=== PATIENT | female | born 1995 | race Caucasian/White ===

== ENCOUNTER 2017-12-24 12:30 | Observation (INO) | payer MEDICAID ==
[~2017-12-24] VITALS: Ht 167.6 cm; Wt 88.9 kg
[2017-12-24] MEDS ORDERED: LACTATED RINGER'S 1,000 ML IV ONE (13:42)
[2017-12-24] MEDS ORDERED: PREN-96 PO (13:46)
[2017-12-24] MEDS ORDERED: BETAMETHASONE ACET (6MG/ML) 5ML VIAL ONE (13:51)
[2017-12-24] MEDS: TERBUTALINE SULFATE 1 MG/ML 1ML VIAL SC SCH ×3 (13:55→15:00)
[2017-12-24] MEDS ORDERED: NIFEdipine 10 MG CAP PO ONE (14:45)
[2017-12-24] MEDS ORDERED: BETAMETHASONE ACET (6MG/ML) 5ML VIAL IM SCH (22:00)
== END 2017-12-24 17:20 | disposition home or self-care (01) | DRG 566 ==
LOC: LDRP 12:30
PROVIDERS: ADMIT Obstetrics & Gynecology; ATTEND Obstetrics & Gynecology
DX: O26.893 Other specified pregnancy related conditions, third trimester (principal); Z3A.28 28 weeks gestation of pregnancy
CPT/HCPCS: 59025; 81002; 96372; G0378; J0702; J3105; 96361

== ENCOUNTER 2017-12-25 13:50 | Observation (INO) | payer MEDICAID ==
[~2017-12-25 13:50] MED LIST: PREN-96 PO
[2017-12-25] MEDS ORDERED: BETAMETHASONE ACET (6MG/ML) 5ML VIAL IM ONE (14:45)
== END 2017-12-25 15:40 | disposition home or self-care (01) | DRG 566 ==
LOC: LDRP 13:50
PROVIDERS: ADMIT Obstetrics & Gynecology; ATTEND Obstetrics & Gynecology
DX: O30.003 Twin pregnancy, unspecified number of placenta and unspecified number of amniotic sacs, third trimester (principal); O60.03 Preterm labor without delivery, third trimester; Z3A.28 28 weeks gestation of pregnancy
CPT/HCPCS: 59025; 81002; 96372; G0378

== ENCOUNTER 2018-02-11 20:22 | Observation (INO) | payer MEDICAID | END 2018-02-11 22:46 | disposition home or self-care (01) | DRG 566 | LOC: LDRP 20:22 | PROVIDERS: ADMIT Specialist; ATTEND Specialist | DX: O30.003 Twin pregnancy, unspecified number of placenta and unspecified number of amniotic sacs, third trimester (principal); Z3A.35 35 weeks gestation of pregnancy | CPT/HCPCS: 59025; 76818; 81002; G0378 ==

== ENCOUNTER 2018-02-15 11:45 | Observation (INO) | payer MEDICAID ==
[2018-02-15 13:41] LABS: Urine Bacteria FEW /hpf (None Seen); Urine Blood Negative /uL (Negative); Urine Specific Gravity 1.003 (1.001-1.035); Urine WBC 12 /hpf (0 - 5)
[2018-02-15 14:04] LABS: Alcohol, Urine < 3.0 mg/dL (0-5); Amphetamine Screen, Urine NEGATIVE (NEGATIVE); Barbiturate Scree,Urine NEGATIVE (NEGATIVE); Benzodiazephine Screen, Urine NEGATIVE (NEGATIVE); Cannabinoid Screen, Urine NEGATIVE (NEGATIVE); Cocaine Screen, Urine NEGATIVE (NEGATIVE); Opiate Scree,Urine NEGATIVE (NEGATIVE); Phencyclidine Screen, Urine NEGATIVE (NEGATIVE)
== END 2018-02-15 13:15 | disposition home or self-care (01) | DRG 566 ==
LOC: LDRP 11:45
PROVIDERS: ADMIT Specialist; ATTEND Specialist
DX: O30.003 Twin pregnancy, unspecified number of placenta and unspecified number of amniotic sacs, third trimester (principal); Z3A.35 35 weeks gestation of pregnancy
CPT/HCPCS: 59025; 76818; 80307; 81001; 81002; G0378

== ENCOUNTER 2018-03-03 08:00 | Inpatient (IN) | payer MEDICAID ==
[~2018-03-03] VITALS: Ht 162.6 cm; Wt 99.3 kg
[2018-03-03] MEDS ORDERED: LACT. RINGERS/OXYTOCIN 20UNITS 1,000 ML IV SCH (08:30)
[2018-03-03] MEDS ORDERED: WITCH HAZEL-GLYCERIN PAD TOP PRN (08:30)
[2018-03-03] MEDS ORDERED: DERMOPLAST 60ML BOTTLE TOP PRN (08:30)
[2018-03-03] MEDS ORDERED: PHISODERM TOP SOLN 240ML BTL TOP PRN (08:30)
[2018-03-03] MEDS ORDERED: LACTATED RINGER'S 1,000 ML IV SCH (08:30)
[2018-03-03] MEDS ORDERED: LIDOCAINE 1% (LOCAL ANESTH.) PF 5ml SDV IJ ONE (08:30)
[2018-03-03 09:29] LABS: Basophils # (auto) 0 uL; Basophils % (auto) 0.3 % (0.0-2.0); Eosinophils # (auto) 0.2 uL; Eosinophils % (auto) 2.8 % (0.0-7.0); Hematocrit 35.1 % (36.0-46.0); Hemoglobin 11.9 g/dL (12.2-16.2); Lymphocytes # (auto) 1.2 uL; Lymphocytes % (auto) 17.5 % (10.0-50.0); Mean Corpuscular Hemoglobin 32.9 pg (28.0-32.0); Mean Corpuscular Hgb Conc. 33.9 g/dL (32.0-36.0); Mean Corpuscular Volume 96.9 fL (80.0-100.0); Monocytes # (auto) 0.5 uL; Monocytes % (auto) 7.5 % (0.0-12.0); Neutrophils # (auto) 4.9 uL; Neutrophils % (auto) 71.9 % (37.0-80.0); Nucleated Red Blood Cells % 0.3 %; Platelet Count (auto) 171 10^3/uL (140-450); Red Blood Cells 3.62 10^6/uL (4.0-5.20); Red Cell Distribution Width 13.4 % (11.8-14.3); White Blood Cell 6.8 10^3/uL (4.4-10.8)
[2018-03-03 09:34] LABS: Urine Bacteria NONE SEEN /hpf (None Seen); Urine Blood Negative /uL (Negative); Urine Budding Yeast FEW /hpf (None Seen); Urine Specific Gravity 1.006 (1.001-1.035); Urine WBC 21 /hpf (0 - 5)
[2018-03-03 09:44] LABS: INR 0.88 (0.9-1.15); Partial Thromboplastin Time 29.1 sec (23.78-33.04); Prothrombin Time 9.5 sec (9.27-12.13)
[2018-03-03 09:49] LABS: Albumin 2.7 g/dL (3.4-5.0); BUN/Creatinine Ratio 4.3; Calcium 8.4 mg/dL (8.5-10.1); Potassium 3.3 mmol/L (3.5-5.1)
[2018-03-03 09:52] LABS: Bilirubin, Total 0.5 mg/dL (0.2-1.0); Total Protein 6.6 g/dL (6.4-8.2)
[2018-03-03] MEDS ORDERED: NALOXONE HCL 0.4 MG/ML VIAL IV ONE ×2 (16:30→23:00)
[2018-03-03] MEDS ORDERED: LIDOCAINE HCL 2 %PF INJ 10ML AMP IJ ONE (16:30)
[2018-03-03] MEDS ORDERED: ePHEDrine SULFATE 50 MG/ML AMP IV ONE ×2 (16:30→23:00)
[2018-03-03] MEDS ORDERED: fentaNYL W ROPIVACAINE 150 ML EPI SCH ×2 (16:30→23:00)
[2018-03-03] MEDS ORDERED: fentaNYL CITRATE 100 MCG/2 ML VL IV ONE (16:30)
[2018-03-03] MEDS ORDERED: POTASSIUM CHL 20 Meq TABLET PO ONE (17:15)
[2018-03-03 20:29] LABS: Alcohol, Urine < 3.0 mg/dL (0-5); Amphetamine Screen, Urine NEGATIVE (NEGATIVE); Barbiturate Scree,Urine NEGATIVE (NEGATIVE); Benzodiazephine Screen, Urine NEGATIVE (NEGATIVE); Cannabinoid Screen, Urine NEGATIVE (NEGATIVE); Cocaine Screen, Urine NEGATIVE (NEGATIVE); Opiate Scree,Urine NEGATIVE (NEGATIVE); Phencyclidine Screen, Urine NEGATIVE (NEGATIVE)
[2018-03-03] MEDS ORDERED: ACETAMINOPHEN 325 MG TAB PO ONE (22:45)
[2018-03-03] MEDS ORDERED: SODIUM CHLORIDE 0.9% 500 ML IV PRN (22:51)
[2018-03-03] MEDS ORDERED: MAGNESIUM SULFATE 100 ML IV ONE ×3 (22:56→23:30)
[2018-03-03] MEDS ORDERED: MAGNESIUM SULFATE 40MG/ML 1,000 ML IV SCH (23:30)
[2018-03-04] MEDS ORDERED: ACETAMINOPHEN 325 MG TAB PO PRN (02:15)
[2018-03-04] MEDS ORDERED: METHYLERGONOVINE MALEATE 0.2 MG/ML AMP IM PRN (03:45)
[2018-03-04] MEDS ORDERED: LIDOCAINE 2%HCL (LOCAL ANESTH.) INJ 20ML MDV ID ONE (04:00)
[2018-03-04] MEDS: NALBUPHINE HCL 10 MG/1ml INJECTION IV PRN ×3 (04:06→15:05)
[2018-03-04] MEDS ORDERED: TERBUTALINE SULFATE 1 MG/ML 1ML VIAL SC ONE (05:00)
[2018-03-04 06:06] LABS: RPR Non Reactive (Non Reactive)
[2018-03-04] MEDS: hydrALAZINE HCL 20 MG/ML VL IV PRN ×3 (06:55→15:26)
[2018-03-04] MEDS ORDERED: D5W/LACTATED RINGERS 1,000 ML IV SCH (13:45)
[2018-03-04] MEDS ORDERED: SUCCINYLCHOLINE CHLORIDE 20 MG/ML 10ML VIAL IV ONE (16:00)
[2018-03-04] MEDS ORDERED: METOCLOPRAMIDE HCL 5MG/ml INJ 2ml VIAL ONE (16:02)
[2018-03-04] MEDS ORDERED: PROPOFOL 10 MG/ML 20 ML IV ONE (16:02)
[2018-03-04] MEDS ORDERED: ROCURONIUM 10MG/ML 10ML VIAL IV ONE (16:12)
[2018-03-04] MEDS ORDERED: ceFAZolin 1GM VL ONE (16:19)
[2018-03-04] MEDS ORDERED: fentaNYL CITRATE 100 MCG/2 ML VL ONE (16:20)
[2018-03-04] MEDS ORDERED: PHENYLEPHRINE HCL 10 MG/ML VL ONE (16:25)
[2018-03-04] MEDS ORDERED: ceFAZolin 1GM/50ML 50 ML IV SCH (16:45)
[2018-03-04] MEDS ORDERED: ONDANSETRON HCL 4 MG/2 ML VIAL IV PRN (16:45)
[2018-03-04] MEDS ORDERED: KETOROLAC TROMETH 30 MG/ML 1ML VIAL IV PRN (16:45)
[2018-03-04] MEDS ORDERED: GLYCOPYRROLATE 0.2 MG/ML 1ML VIAL ONE ×2 (16:50)
[2018-03-04] MEDS ORDERED: NEOSTIGMINE 1 MG/ML INJ (10mg/10ML VIAL) ONE (16:50)
--- NOTE | 2018-03-04 16:55 | NUR ---
Epidural catheter removed per Dr Aragon's order. Tip intact
[2018-03-04] MEDS ORDERED: HYDROmorphone HCL 2 MG/ML VL IV PRN (17:15)
[2018-03-04] MEDS ORDERED: NALOXONE HCL 0.4 MG/ML VIAL IV PRN (17:15)
[2018-03-04] MEDS ORDERED: ONDANSETRON HCL 4 MG/2 ML VIAL IV ONE (17:15)
[2018-03-04] MEDS ORDERED: hydrALAZINE HCL 20 MG/ML VL IV PRN ×2 (17:15→19:30)
[2018-03-04] MEDS ORDERED: OXYTOCIN 20 UNT in SODIUM CHLORIDE 0.9% 1,000 ML IV SCH (17:30)
[2018-03-04] MEDS: HYDROmorphone HCL 2 MG/ML VL IV PRN ×2 (17:42→17:52)
[2018-03-04] MEDS ORDERED: OXYTOCIN IV SCH (17:45)
[2018-03-04] MEDS ORDERED: MAGNESIUM SULF IV SCH (17:45)
[2018-03-04] MEDS ORDERED: SODIUM CHLORIDE 0.9% IV SCH (17:45)
--- NOTE | 2018-03-04 18:15 | NUR ---
Post Op for LDRP: Received patient from PACU via bed to room . Patient A/A/Ox4, abdominal binder and bilateral SCD's are in place and working, IV fluids placed on pump and infusing per order, incisional site dressing clean/dry/intact and Le Catheter to gravity draining clear yellow urine. Incentive Spirometer at bedside and instruction on proper use with return demonstration done by patient. fundus firm and at U ,scant bleeding noted.
[2018-03-04] MEDS ORDERED: MAGNESIUM SULFATE 40MG/ML 1,000 ML IV ONE (18:25)
[2018-03-04] MEDS ORDERED: MAGNESIUM SULFATE 40MG/ML 1,000 ML IV SCH ×2 (18:41→18:45)
[2018-03-04] MEDS: LACTATED RINGER'S 1,000 ML IV SCH (18:47)
--- NOTE | 2018-03-04 18:47 | NUR ---
MAGNESIUM SULFATE HUNG AT 50ML/HR 2 G/HR, WITNESSED BY KERLINE MIGUEL
--- NOTE | 2018-03-04 19:20 | NUR ---
Dr Krishna called with blood pressures to obtain new orders, all orders reviewed and new orders received.
[2018-03-04] MEDS: LABETALOL HCL 200 MG TAB PO SCH (19:43)
[2018-03-04] MEDS: ACETAMINOPHEN IV 1000 MG/100ML (10MG/ML) IV SCH (20:04)
--- NOTE | 2018-03-04 21:00 | NUR ---
Bottle-feeding Education: Patient encouraged to breastfeed. Benefits of and the risk of providing formula to was discussed. Patient verbalized understanding of the benefits and is aware of risk and insists on bottle-feeding. Formula provided and instruction on formula preparation from the [facility] booklet reviewed with patient.
[2018-03-04] MEDS: MORPHINE SULFATE 4 MG/ML SYR/VIAL IV PRN (22:02)
[2018-03-04 22:06] LABS: Basophils # (auto) 0 uL; Eosinophils # (auto) 0 uL; Hemoglobin 10.4 g/dL (12.2-16.2); Lymphocytes # (auto) 0.8 uL; Lymphocytes % (auto) 3.8 % (10.0-50.0); Mean Corpuscular Hemoglobin 32.6 pg (28.0-32.0); Mean Corpuscular Hgb Conc. 33.4 g/dL (32.0-36.0); Mean Corpuscular Volume 97.6 fL (80.0-100.0); Monocytes # (auto) 1.5 uL; Monocytes % (auto) 7.3 % (0.0-12.0); Neutrophils # (auto) 18.1 uL; Neutrophils % (auto) 88.9 % (37.0-80.0); Nucleated Red Blood Cells % 0.1 %; Platelet Count (auto) 194 10^3/uL (140-450); Red Blood Cells 3.18 10^6/uL (4.0-5.20); Red Cell Distribution Width 13.6 % (11.8-14.3); White Blood Cell 20.4 10^3/uL (4.4-10.8)
[2018-03-05] MEDS: ceFAZolin 1GM/50ML 50 ML IV SCH ×3 (00:14→14:35)
[2018-03-05] MEDS: KETOROLAC TROMETH 30 MG/ML 1ML VIAL IV SCH ×3 (00:15→12:04)
[2018-03-05] MEDS: MORPHINE SULFATE 4 MG/ML SYR/VIAL IV PRN ×3 (03:08→13:03)
[2018-03-05] MEDS: LACTATED RINGER'S 1,000 ML IV SCH (05:42)
[2018-03-05 06:51] LABS: Basophils # (auto) 0 uL; Basophils % (auto) 0.1 % (0.0-2.0); Eosinophils # (auto) 0 uL; Eosinophils % (auto) 0.3 % (0.0-7.0); Hematocrit 26.4 % (36.0-46.0); Hemoglobin 8.9 g/dL (12.2-16.2); Lymphocytes # (auto) 1.1 uL; Mean Corpuscular Hemoglobin 32.7 pg (28.0-32.0); Mean Corpuscular Hgb Conc. 33.5 g/dL (32.0-36.0); Mean Corpuscular Volume 97.5 fL (80.0-100.0); Monocytes # (auto) 1.2 uL; Monocytes % (auto) 7.2 % (0.0-12.0); Neutrophils # (auto) 13.7 uL; Neutrophils % (auto) 85.4 % (37.0-80.0); Nucleated Red Blood Cells % 0.1 %; Platelet Count (auto) 175 10^3/uL (140-450); Red Blood Cells 2.71 10^6/uL (4.0-5.20); Red Cell Distribution Width 13.3 % (11.8-14.3)
[2018-03-05 06:59] LABS: Albumin 1.9 g/dL (3.4-5.0); BUN/Creatinine Ratio 4.1; Calcium 7.2 mg/dL (8.5-10.1); Potassium 3.3 mmol/L (3.5-5.1)
[2018-03-05 07:00] VITALS: BP 121/71
[2018-03-05 07:02] LABS: Bilirubin, Total 0.5 mg/dL (0.2-1.0); Total Protein 4.9 g/dL (6.4-8.2)
[2018-03-05] MEDS: ACETAMINOPHEN IV 1000 MG/100ML (10MG/ML) IV SCH (08:00)
[2018-03-05] MEDS: LABETALOL HCL 200 MG TAB PO SCH ×2 (08:00→20:20)
--- NOTE | 2018-03-05 09:15 | NUR ---
radiology dept. called up and check if they can come and get the patient to do her mri of the neck so the telegraphic typewriter installer of this notes explained to the patient that somebody will come to pick her up for ct scan but the patient requested it to be done later this afternoon because she still does not feel like going anywhere right now and the is not in the room and she wants her to be in the room with the twins.
[2018-03-05 11:00] VITALS: BP 126/67
--- NOTE | 2018-03-05 13:40 | NUR ---
radiology department called up and was informed that the patient wants to do her ct scan of the neck at 1600 today.
[2018-03-05] MEDS: SODIUM CHLOR 0.9% PF (SALINE LOCK) 10ML VIAL/SYR IV SCH ×2 (14:00→22:00)
[2018-03-05] MEDS ORDERED: POTASSIUM CHL 20 Meq TABLET PO ONE (14:15)
--- NOTE | 2018-03-05 14:30 | NUR ---
dr. funk came in received order soft diet and remove padilla catheter before going to radiology for ct scan of the neck and then encouraged to ambulate.
--- NOTE | 2018-03-05 14:45 | NUR ---
padilla bag emptied and obtained 1800 ml of clear yellow colored urine.
[2018-03-05 15:40] VITALS: BP 139/79
[2018-03-05] MEDS ORDERED: HYDROcodone-ACET 5/325MG TAB PO PRN (16:00)
[2018-03-05] MEDS ORDERED: BISACODYL 10 MG RECT SUPP PR PRN (16:00)
--- NOTE | 2018-03-05 16:00 | NUR ---
solar thermal technician came in to take the patient to ct scan but patient refused to do it now and wanted to do it again at 1999 ruthy explained to the patient that only emergency cases will be done at night and it needs to be done by 1700 today but still patient refused doing it at this time.report given to karely ramirez rn patient in stable condition.
--- NOTE | 2018-03-05 16:10 | NUR ---
DR. DAMON AT PT BEDSIDE TALKING WITH PT. DR. DAMON DISCUSSING WITH PT THE IMPORTANCE OF THE CT SCAN. PT STATES "IM TO TIRED NOW AND WANT TO DO IT TOMORROW." PT NOTIFIED DR. DAMON THAT HER NECK AND BACK DOESN'T HURT ANYMORE. DR. DAMON TOLD PT THAT THE CT SCAN CAN BE DONE TOMORROW MORNING. PT VERBALIZES UNDERSTANDING. WILL NOTIFY PAID INTERN RN. WILL CONTINUE TO MONITOR.
[2018-03-05] MEDS: HYDROcodone-ACET 5/325MG TAB PO PRN ×2 (16:44→20:23)
--- NOTE | 2018-03-05 17:47 | NUR ---
this RN at bedside to remove padilla catheter, pt states " not right now, I'll be ready in about 15 min"
[2018-03-05] MEDS: SIMETHICONE 80 MG CHEWABLE TABLET PO SCH ×2 (18:10→22:02)
--- NOTE | 2018-03-05 18:30 | NUR ---
PT REPORT GIVEN TO Hiren DUARTE RN ON STABLE PATIENT. NO S/S OF DISTRESS OR SOB NOTED. Hiren DUARTE MADE AWARE THAT PTS REQUESTED HER CT SCAN FOR TOMORROW MORNING, AND PT WANTING TO HOLD OFF ON WILLETT REMOVAL AND GETTING OUT OF BED AT THIS TIME, RELINQUISHED CARE.
[2018-03-05 19:15] VITALS: BP 142/90
--- NOTE | 2018-03-05 19:15 | NUR ---
Fundus firm just below the umb. lochia is small no clots noted. padilla catheter removed and intact eric care given, and instructions on eric care given. seq stockings removed. Educated on the importance of being able to urinate within a six hour time frame. Pt verbalizes understanding. will continue to monitor
--- NOTE | 2018-03-05 21:30 | NUR ---
Asked the patient if she was rady to ret up and out of bed, patient states shes is not ready to get up and out of bed. Will continue to monitor
[2018-03-05] MEDS: DOCUSATE SOD 100 MG CAP PO SCH (22:00)
[2018-03-05 23:15] VITALS: BP 141/82
--- NOTE | 2018-03-06 01:00 | NUR ---
Preparing pt for ambulation. fundus remains firm just below the umb. lochia is small one small clot noted. Pt sitting on edge of bed. pt had difficulty sitting up, no c/o dizziness. With assistance from nurses and her sign. other pt able to stand up and ambulate to bathroom. Pt able to urinate without difficulty. Gladys care instructions given and demonstrated. pt verbalizes understanding. Pt back to bed with assistance from staff and significant other. Call villalobos within reach instructed to notify staff if exp any problems or has any difficulty.
[2018-03-06] MEDS: HYDROcodone-ACET 5/325MG TAB PO PRN ×5 (01:30→20:11)
[2018-03-06 03:05] VITALS: BP 146/80
--- NOTE | 2018-03-06 04:20 | NUR ---
Pt states she needs "help getting up to use the bathroom" with assistance from staff and significant other pt up and ambulating to bathroom output 450 ml's of blood tinged urine noted. Pt back to bed with assistance. Explained to pt the importance of ambulating, asked if she wanted to walk in the [address] pt refused will continue to monitor
[2018-03-06] MEDS: IBUPROFEN 800 MG TAB PO PRN ×2 (04:30→15:22)
[2018-03-06] MEDS: SODIUM CHLOR 0.9% PF (SALINE LOCK) 10ML VIAL/SYR IV SCH ×2 (06:00→14:00)
[2018-03-06] MEDS: DOCUSATE CALCIUM 240 MG CAP PO SCH (06:00)
[2018-03-06] MEDS: SIMETHICONE 80 MG CHEWABLE TABLET PO SCH ×4 (06:18→21:50)
[2018-03-06 07:10] VITALS: BP 128/66
[2018-03-06] MEDS: LABETALOL HCL 200 MG TAB PO SCH ×2 (07:17→20:46)
[2018-03-06] MEDS: DOCUSATE SOD 100 MG CAP PO SCH ×2 (10:00→21:50)
[2018-03-06 11:00] VITALS: BP 150/78
[2018-03-06 15:30] VITALS: BP 140/81
[2018-03-06 19:00] VITALS: BP 143/89
--- NOTE | 2018-03-06 19:00 | NUR ---
Received female pt awake and alert states she "has lots of pain" asked if she is exp incisional pain or cramping pt pointed to abd and states "incision pain" complained that "the other nurse said I could have the other Pritchett when I needed it. pt went on to explain that she had told the previous nurse that she wanted to eat something before she took her pain medication and then was only given one Pritchett" and pt is now asking for her second Pritchett. Explained to pt that the order written by her physician was that she may have one tablet or two tablets for pain every four hours and that because she only took one tablet she needed to wait the four hour time frame. Present during conversation with pt was Amarilis charge master specialist nurse and she again explained to pt our protocol and orders regarding administration of pain medication. Other interventions offered to help with pain relief, pt not receptive and remains very disinterested Pt does not seem satisfied with the explanation given to her regarding protocol and orders. Did reassure her that she was able to receive pain medication after four hours from the previous dose. Which would in a little over an hour, Pt nodded and said Ok. Physical assessment completed, encouraged pt to ambulate, states she's walking around her room. No distress noted will continue to monitor
--- NOTE | 2018-03-06 21:50 | NUR ---
Entered room to administer medication while putting medication cups on bedside table a brown medication bottle was noticed on bedside table that was quickly snatched by grandmother. Will continue to monitor. 2300: V/S obtained and a small medication syringe was noted to be rolled up in cloth diaper on the father's bed. female twin B was crying and rooting showing feeding cues I asked mother if the had been fed and she stated she had just finished. I looked at the bottle of formula and noted that only 10 ml's had been fed explained to mom that the baby could feed more and she stated that the baby wasn't hungry and that the baby had a stomach ache. While grandmother was holding I palpated the abd and found it to be soft with active b/s again encouraged mother to offer more formula and she she said no. Will continue to monitor 2330 Spoke with Angel vpk teacher along with Amarilis RN, regarding findings in patient's room she advised to speak to the patient and explain our concerns. 0115 Pt is asking for pain medication states her pain is 8/10 on pain scale. Amarilis and this RN spoke with parents at bedside explained our concerns regarding the brown medication bottle and the medication syringe noted in her room. Patient was very defensive and stated "that's medication for my baby girl she has lots of gas" She stated she had not given her any of the medication and that she's the mother and can trimmer sawyer her what she wants We validated her feelings and explained our concerns. The brown medication bottle was labeled "Mylicon" drops.
[2018-03-06 23:00] VITALS: BP 125/71
[2018-03-07] MEDS: HYDROcodone-ACET 5/325MG TAB PO PRN ×2 (01:17→07:51)
[2018-03-07 02:55] VITALS: BP 133/67
[2018-03-07] MEDS: SODIUM CHLOR 0.9% PF (SALINE LOCK) 10ML VIAL/SYR IV SCH (06:00)
--- NOTE | 2018-03-07 06:30 | NUR ---
Entered room. Mother resting in bed with eyes closed. Regular respirations. No distress noted. Significant other in room asleep in chair. Bed low. Call light in reach. Sd rails up x2.
[2018-03-07 07:00] VITALS: BP 146/83
[2018-03-07] MEDS ORDERED: TETANUS-DIPTH-ACEL PERTUSSIS 0.5ML SYRG IM ONE (07:15)
--- NOTE | 2018-03-07 07:15 | NUR ---
Mother in bathroom. Stated she if "fine". Attempted to inform of plan of care. Stated she will be done soon. Requested to continue conversation after her am care. Verbalized understanding. Declined to medication at this time, requested to finish "brushing teeth and washing facing". Significant other at bedsd. Updated on POC, discharge today and need to complete certificates before discharge. Verbalized understanding.
[2018-03-07] MEDS: SIMETHICONE 80 MG CHEWABLE TABLET PO SCH ×2 (07:51→12:00)
[2018-03-07] MEDS: LABETALOL HCL 200 MG TAB PO SCH (07:56)
--- NOTE | 2018-03-07 08:00 | NUR ---
IV removal IV x2 in left FA DC'd with sterile technique, catheter fully intact. Pressure dressing applied to each site. Patient tolerated procedure well.
--- NOTE | 2018-03-07 09:00 | NUR ---
BP retake 146/79 HR 79. C/S Staple Removal DC Note: Orders received to remove maria victoria. Maria Victoria removed using sterile technique. Lower abdominal incision approximated, no drainage/redness/inflammation visualized at time of removal. Steri-strips applied. Education provided on incisional care. Patient verbalized understanding and willingness to comply to instructions/teaching provided.
--- NOTE | 2018-03-07 09:36 | NUR ---
Dr Blankenship called. Informed of BP results for 0700 and 0900 today. Verbalized understanding. Received orders for prescription to be called in at patient's pharmacy of choice: Labetolol 200mg PO Q 12 hours #60. Informed pt of order/prescription. Verbalized understanding. Stated she uses the [facility] on [facility] and [place] [address] [phone]. Prescription called in to above pharmacy. Addendum: 03/07/18 at 0947 by VERNON PORTILLO RN [facility] is closed. Prescription called into [facility] [address] [phone].
[2018-03-07] MEDS: DOCUSATE CALCIUM 240 MG CAP PO SCH (10:26)
[2018-03-07] MEDS: DOCUSATE SOD 100 MG CAP PO SCH (10:26)
[2018-03-07 11:00] VITALS: BP 133/70
--- NOTE | 2018-03-07 13:30 | NUR ---
Discharge: Discharge instructions given as ordered. Pt encouraged to follow up with ASSORTER, Dr Krishna as instructed. All questions and concerns addressed. Patient verbalized understanding. Medication reconciliation completed and copy given to patient. Prescription given for [facility] and informed of labetolol prescription called into [facility] [place] [id number] [facility]. Pt refused TDAP and vaccine. Patient encouraged to prepare to depart unit.
--- NOTE | 2018-03-07 14:20 | NUR ---
Discharge: Patient taken to vehicle via wheelchair with all personal belongings, accompanied by staff and family member. No distress noted at time of departure, no adverse changes in status since initial assessment.
== END 2018-03-07 14:20 | disposition home or self-care (01) | DRG 540 ==
LOC: LDRP 08:00
PROVIDERS: ADMIT Obstetrics & Gynecology; ATTEND Obstetrics & Gynecology
PROC: 3E0P7VZ Introduction of Hormone into Female Reproductive, Via Natural or Artificial Opening (ICD-10-PCS; 2018-03-03)
PROC: 10D00Z1 Extraction of Products of Conception, Low, Open Approach (ICD-10-PCS; principal; 2018-03-04 15:56)
DX: O30.043 Twin pregnancy, dichorionic/diamniotic, third trimester (principal); Z37.2 Twins, both liveborn; O69.81X1 Labor and delivery complicated by cord around neck, without compression, fetus 1; O13.4 Gestational [pregnancy-induced] hypertension without significant proteinuria, complicating childbirth; M54.2 Cervicalgia; Z3A.38 38 weeks gestation of pregnancy; Z28.21 Immunization not carried out because of patient refusal; O62.0 Primary inadequate contractions; M54.6 Pain in thoracic spine; O74.6 Other complications of spinal and epidural anesthesia during labor and delivery
CPT/HCPCS: 36415; 51702; 59025; 62282; 70450; 70490; 80053; 80307; 81001; 83735; 84132; 84550; 85025; 85610; 85730; 86592; 86850; 86900; 86901; 94760; 96361; 96365; 96366; 96375; G0378; J0131; J0330; J0690; J1885; J2590; J2704; J3010